=== PATIENT | female | born 1965 | race Caucasian/White ===

== ENCOUNTER 2020-03-12 12:44 | Day surgery (SDC) | payer BC ==
[2020-03-12] MEDS ORDERED: Sodium Chloride 0.9(Preservative Free) 10 ML IJ ONE (12:45)
[2020-03-12] MEDS ORDERED: Depo-Medrol 40 MG/ML IM ONE (12:45)
[2020-03-12] MEDS ORDERED: Xylocaine 1% Vial 30 ML PF IJ ONE (12:45)
[2020-03-12] MEDS ORDERED: DIPRIVAN 200 MG/20 ML IV ONE (14:19)
[2020-03-12] MEDS ORDERED: Ketamine HCl 50 MG/ML ONE (14:19)
[2020-03-12] MEDS ORDERED: Lactated Ringers 1,000 ML IV ONE (15:53)
--- NOTE | 2020-03-12 16:08 | XRAY ---
Indication: Lumbar RYAN. Intraoperative fluoroscopy was provided for 17 seconds. 2 digital spot images submitted for interpretation demonstrates midline posterior needle tip projecting just posterior to the lumbosacral junction interspace. Small amount of contrast injected for needle tip placement. Correlate with intraoperative findings/report.
--- NOTE | 2020-03-12 16:14 | XRAY ---
17 seconds fluoroscopy time in surgery for lumbar RYAN.
== END 2020-03-12 14:45 | disposition home or self-care (01) ==
LOC: SDC-PAIN 12:44
PROVIDERS: ATTEND Psychiatry & Neurology Pain Medicine
DX: M54.16 Radiculopathy, lumbar region (principal); M79.7 Fibromyalgia; F41.8 Other specified anxiety disorders; K52.9 Noninfective gastroenteritis and colitis, unspecified; Z79.899 Other long term (current) drug therapy
CPT/HCPCS: 62323; 72100; 77003; J1030; J2001; J2704; Q9966

== ENCOUNTER 2020-06-11 11:28 | Day surgery (SDC) | payer BC ==
[2020-06-11] MEDS ORDERED: LIDOCAINE HCL 2% 100 MG/5 ML IJ ONE (11:29)
[2020-06-11] MEDS ORDERED: Depo-Medrol 40 MG/ML IM ONE (11:29)
[2020-06-11] MEDS ORDERED: Ketamine HCl 50 MG/ML ONE (11:30)
[2020-06-11] MEDS ORDERED: DIPRIVAN 200 MG/20 ML IV ONE (11:30)
[2020-06-11] MEDS ORDERED: Lactated Ringers 1,000 ML IV ONE (15:59)
--- NOTE | 2020-06-11 16:21 | XRAY ---
Indication: Bilateral L4-S1 MBB. Intraoperative fluoroscopy was provided for 13 seconds. Single digital spot image submitted for interpretation demonstrates posterior needle tips projecting over the expected course of the left and right L4-S1 nerve roots. Correlate with intraoperative findings/report.
--- NOTE | 2020-06-11 16:27 | XRAY ---
13 seconds of fluoroscopy was used in surgery for a bilateral L4-L5 and L5-S1 MBB.
== END 2020-06-11 14:55 | disposition home or self-care (01) ==
LOC: SDC-PAIN 11:28
PROVIDERS: ATTEND Psychiatry & Neurology Pain Medicine
DX: M47.816 Spondylosis without myelopathy or radiculopathy, lumbar region (principal); M79.7 Fibromyalgia; F41.8 Other specified anxiety disorders; Z79.899 Other long term (current) drug therapy
CPT/HCPCS: 64493; 64494; 72020; 77002; J1030; J2704

== ENCOUNTER 2020-09-10 09:07 | Day surgery (SDC) | payer BC ==
[2020-09-10] MEDS ORDERED: Depo-Medrol 40 MG/ML IM ONE (09:08)
[2020-09-10] MEDS ORDERED: BUPIVACAINE 0.5% VIAL IJ ONE (09:08)
[2020-09-10] MEDS ORDERED: Ketamine HCl 50 MG/ML ONE (11:14)
[2020-09-10] MEDS ORDERED: DIPRIVAN 200 MG/20 ML IV ONE (11:14)
--- NOTE | 2020-09-10 12:20 | XRAY ---
Indication: Bilateral L4-S1 MBB. Intraoperative fluoroscopy was provided for 14 seconds. Single digital spot image submitted for interpretation demonstrates posterior needle tips projecting over the expected left and right L4-S1 nerve roots. Correlate with intraoperative findings/report.
--- NOTE | 2020-09-10 12:29 | XRAY ---
14 seconds fluoroscopy time in surgery for bilateral L4-S1 MBB.
[2020-09-10] MEDS ORDERED: Lactated Ringers 1,000 ML IV ONE (15:27)
== END 2020-09-10 11:40 | disposition home or self-care (01) ==
LOC: SDC 09:07 → SDC-PAIN 09:07
PROVIDERS: ATTEND Psychiatry & Neurology Pain Medicine
DX: M47.816 Spondylosis without myelopathy or radiculopathy, lumbar region (principal); M79.7 Fibromyalgia; K52.9 Noninfective gastroenteritis and colitis, unspecified; F41.8 Other specified anxiety disorders; Z79.899 Other long term (current) drug therapy
CPT/HCPCS: 72020; 77002; J1030; J2704

== ENCOUNTER 2022-03-10 09:57 | Day surgery (SDC) | payer BC ==
[2022-03-10] MEDS ORDERED: Depo-Medrol 40 MG/ML IM ONE (09:58)
[2022-03-10] MEDS ORDERED: Marcaine Mpf 0.5% Vial 30 Ml IJ ONE (09:58)
[2022-03-10] MEDS ORDERED: XYLOCAINE-MPF 1% 5ML SDV IJ ONE (09:58)
[2022-03-10] MEDS ORDERED: DIPRIVAN 200 MG/20 ML IV ONE (11:52)
[2022-03-10] MEDS ORDERED: Xylocaine-Mpf 2% 5 Ml Vial ONE (11:53)
--- NOTE | 2022-03-10 12:24 | XRAY ---
Indication: Left L4-S1 RFA. Intraoperative fluoroscopy provided for 22 seconds. 3 digital spot images submitted for interpretation demonstrate posterior needle tips projecting over the expected left L4-S1 nerve roots. Correlate with intraoperative findings/report.
[2022-03-10] MEDS ORDERED: Lactated Ringers 1,000 ML IV ONE (12:25)
--- NOTE | 2022-03-10 15:25 | XRAY ---
22 seconds fluoroscopy time in surgery for left L4-S1 RFA.
== END 2022-03-10 12:17 | disposition home or self-care (01) ==
LOC: SDC-PAIN 09:57
PROVIDERS: ATTEND Psychiatry & Neurology Pain Medicine
DX: M47.816 Spondylosis without myelopathy or radiculopathy, lumbar region (principal); Z79.899 Other long term (current) drug therapy
CPT/HCPCS: 64635; 64636; 72100; 77002; J1030; J2704

== ENCOUNTER 2022-03-24 09:58 | Day surgery (SDC) | payer BC ==
[2022-03-24] MEDS ORDERED: Marcaine Mpf 0.5% Vial 30 Ml IJ ONE (09:59)
[2022-03-24] MEDS ORDERED: Depo-Medrol 40 MG/ML IM ONE (09:59)
[2022-03-24] MEDS ORDERED: XYLOCAINE-MPF 1% 5ML SDV IJ ONE (09:59)
[2022-03-24] MEDS ORDERED: DIPRIVAN 200 MG/20 ML IV ONE (11:39)
[2022-03-24] MEDS ORDERED: Lactated Ringers 1,000 ML IV ONE (12:03)
--- NOTE | 2022-03-24 13:16 | XRAY ---
Indication: Right L4-S1 RFA. Intraoperative fluoroscopy provided for 21 seconds. 3 digital spot images submitted for interpretation demonstrates posterior needle tips projecting over the expected right L4-S1 nerve roots. Correlate with intraoperative findings/report.
--- NOTE | 2022-03-24 13:18 | XRAY ---
21 seconds of fluoroscopy was used in surgery for a right L4-S1 RFA.
== END 2022-03-24 12:05 | disposition home or self-care (01) ==
LOC: SDC-PAIN 09:58
PROVIDERS: ATTEND Psychiatry & Neurology Pain Medicine
DX: M47.816 Spondylosis without myelopathy or radiculopathy, lumbar region (principal); Z79.899 Other long term (current) drug therapy
CPT/HCPCS: 64635; 64636; 72100; 77002; J1030; J2704

== ENCOUNTER 2022-05-12 07:00 | Day surgery (SDC) | payer BC ==
[2022-05-12] MEDS ORDERED: Sodium Chloride 0.9(Preservative Free) 10 ML IJ ONE (07:01)
[2022-05-12] MEDS ORDERED: Depo-Medrol 40 MG/ML IM ONE (07:01)
[2022-05-12] MEDS ORDERED: LIDOCAINE HCL 1% 50 MG/5 ML VL PF IJ ONE (07:01)
[2022-05-12] MEDS ORDERED: Lactated Ringers 1,000 ML IV ONE (14:22)
--- NOTE | 2022-05-12 17:56 | XRAY ---
Indication: Lumbar RYAN. Intraoperative fluoroscopy provided for 14 seconds. 2 digital spot images submitted for interpretation demonstrates posterior needle tip projecting just posterior to L4-L5 interspace. Small amount of contrast injected for needle tip placement. Correlate with intraoperative findings/report.
--- NOTE | 2022-05-12 18:31 | XRAY ---
14 seconds of fluoroscopy was used in surgery for a lumbar RYAN.
== END 2022-05-12 09:00 | disposition home or self-care (01) ==
LOC: SDC-PAIN 07:00
PROVIDERS: ATTEND Psychiatry & Neurology Pain Medicine
DX: M54.16 Radiculopathy, lumbar region (principal); Z79.899 Other long term (current) drug therapy
CPT/HCPCS: 62323; 72100; 77003; J1030; J2001; Q9966

== ENCOUNTER 2022-10-13 09:50 | Day surgery (SDC) | payer BC ==
[2022-10-13] MEDS ORDERED: Decadron 4 MG INJ IV ONE (09:51)
[2022-10-13] MEDS ORDERED: LIDOCAINE HCL 1% 50 MG/5 ML VL PF IJ ONE (09:51)
[2022-10-13] MEDS ORDERED: DIPRIVAN 200 MG/20 ML IV ONE (11:45)
[2022-10-13] MEDS ORDERED: Lactated Ringers 1,000 ML IV ONE (13:29)
--- NOTE | 2022-10-13 13:46 | XRAY ---
Indication: Left C2-C4 MBB. Intraoperative fluoroscopy provided for 12 seconds. 2 digital spot images submitted for interpretation demonstrates posterior needle tips projecting over the expected left C2-C4 nerve roots. Correlate with intraoperative findings/report.
--- NOTE | 2022-10-13 13:50 | XRAY ---
12 seconds of fluoroscopy was used in surgery for a left C2-C4 MBB.
== END 2022-10-13 12:25 | disposition home or self-care (01) ==
LOC: SDC-PAIN 09:50
PROVIDERS: ATTEND Psychiatry & Neurology Pain Medicine
DX: M47.812 Spondylosis without myelopathy or radiculopathy, cervical region (principal); Z79.899 Other long term (current) drug therapy
CPT/HCPCS: 64490; 64491; 72040; 77002; J1100; J2001; J2704

== ENCOUNTER 2022-12-08 11:26 | Day surgery (SDC) | payer BC ==
[2022-12-08] MEDS ORDERED: BUPIVACAINE 0.5% VIAL IJ ONE (11:27)
[2022-12-08] MEDS ORDERED: Decadron 4 MG INJ IV ONE (11:27)
[2022-12-08] MEDS ORDERED: DIPRIVAN 200 MG/20 ML IV ONE (13:32)
--- NOTE | 2022-12-08 15:21 | XRAY ---
Indication: Left C2-C4 MBB. Intraoperative fluoroscopy provided for 13 seconds. 2 digital spot image submitted for interpretation demonstrates posterior needle tips projecting over the expected left C2-C4 nerve roots. Correlate with intraoperative findings/report.
[2022-12-08] MEDS ORDERED: Lactated Ringers 1,000 ML IV ONE (15:42)
--- NOTE | 2022-12-08 17:07 | XRAY ---
13 seconds of fluoroscopy was used in surgery for a left C2-C4 MBB.
== END 2022-12-08 14:00 | disposition home or self-care (01) ==
LOC: SDC-PAIN 11:26
PROVIDERS: ATTEND Psychiatry & Neurology Pain Medicine
DX: M47.812 Spondylosis without myelopathy or radiculopathy, cervical region (principal); Z79.899 Other long term (current) drug therapy
CPT/HCPCS: 64490; 64491; 72040; 77002; J1100; J2704

== ENCOUNTER 2023-01-19 11:55 | Day surgery (SDC) | payer BC ==
[2023-01-19] MEDS ORDERED: BUPIVACAINE 0.5% VIAL IJ ONE (11:56)
[2023-01-19] MEDS ORDERED: Decadron 4 MG INJ IV ONE (11:56)
[2023-01-19] MEDS ORDERED: LIDOCAINE HCL 1% 50 MG/5 ML VL PF IJ ONE (11:56)
[2023-01-19] MEDS ORDERED: DIPRIVAN 200 MG/20 ML IV ONE (13:55)
--- NOTE | 2023-01-19 14:45 | XRAY ---
Indication: Left C2-C4 RFA. Intraoperative fluoroscopy provided for 16 seconds. 3 digital spot images submitted for interpretation demonstrates posterior needle tips projecting over the expected left C2-C4 nerve roots. Correlate with intraoperative findings/report.
--- NOTE | 2023-01-19 14:49 | XRAY ---
16 seconds of fluoroscopy was used in surgery for a left C2-C4 RFA.
[2023-01-19] MEDS ORDERED: Lactated Ringers 1,000 ML IV ONE (15:23)
== END 2023-01-19 14:30 | disposition home or self-care (01) ==
LOC: SDC-PAIN 11:55
PROVIDERS: ATTEND Psychiatry & Neurology Pain Medicine
DX: M47.812 Spondylosis without myelopathy or radiculopathy, cervical region (principal); Z79.899 Other long term (current) drug therapy
CPT/HCPCS: 64633; 64634; 72040; 77002; J1100; J2001; J2704